=== PATIENT | female | born 1950 | race Two or more races ===

== ENCOUNTER 2021-05-02 23:26 | Emergency (ER) | payer OTHER ==
[~2021-05-02] VITALS: Ht 162.6 cm; Wt 65.9 kg
[~2021-05-02 23:26] MED LIST: ASPI-1450 PO; BP MED PO; METF500T PO; SIMV-260 PO
[2021-05-02] MEDS ORDERED: OMEP10 PO (23:58)
[2021-05-02] MEDS ORDERED: CEPH500C3 PO (23:58)
[2021-05-02] MEDS ORDERED: METF-960 PO (23:58)
[2021-05-02] MEDS ORDERED: CALC-1275 PO (23:58)
[2021-05-02] MEDS ORDERED: ACET-2163 PO (23:58)
[2021-05-02] MEDS ORDERED: CARV3 PO (23:58)
[2021-05-02] MEDS ORDERED: ATOR40TA28 PO (23:58)
[2021-05-02] MEDS ORDERED: LISI-893 PO (23:58)
[2021-05-02] MEDS ORDERED: MULT-88 PO (23:58)
[2021-05-02] MEDS ORDERED: CITA-144 PO (23:58)
[2021-05-02] MEDS ORDERED: RANO500T3 PO (23:58)
[2021-05-02] MEDS ORDERED: LORA-999 PO (23:58)
[2021-05-02] MEDS ORDERED: LEVO150 PO (23:58)
[2021-05-03 02:06] LABS: BASOPHILS % (AUTO) 0.6 % (0.0-2.0); EOSINOPHILS % (AUTO) 1.3 % (1.0-6.0); HEMATOCRIT 34.2 % (36-46); HEMOGLOBIN 11.3 g/dL (12.0-16.0); LYMPHOCYTES # (AUTO) 2.7 K/uL (1.0-4.8); LYMPHOCYTES % (AUTO) 28.2 % (22.0-44.0); MEAN CORPUSCULAR HEMOGLOBIN 28.7 pg (26.0-34.0); MEAN CORPUSCULAR HGB CONC 33.1 G/dL (31.0-37.0); MEAN CORPUSCULAR VOLUME 87 fL (80-100); MONOCYTES # (AUTO) 0.6 K/uL (0.1-1.0); MONOCYTES % (AUTO) 6.3 % (2.0-9.0); NEUTROPHILS # (AUTO) 6.2 K/uL (1.8-7.7); NEUTROPHILS % (AUTO) 63.6 % (40.0-70.0); PLATELET COUNT (AUTO) 272 K/uL (150-450); RED BLOOD CELL COUNT(AUTO) 3.94 MIL/uL (4.00-5.20); RED CELL DISTRIBUTION WIDTH 13.9 % (11.5-14.5)
[2021-05-03 03:15] LABS: ANION GAP 8 mmol/L (8-16); CALCIUM, TOTAL 9.4 mg/dL (8.8-10.5); CARBON DIOXIDE 26 mmol/L (22-29); CHLORIDE 100 mmol/L (98-107); CREATININE 1.39 mg/dL (0.60-1.30); GLOMERULAR FILTR. RATE CALC 37 mL/min (>60); GLUCOSE,RANDOM 164 mg/dL (70-110); SODIUM SERUM 134 mmol/L (136-145); UREA NITROGEN, BLOOD 28 mg/dL (7-18)
[2021-05-03 03:20] LABS: ALANINE AMINOTRANSFERASE 18 U/L (12-78); ALBUMIN 3.7 g/dL (3.4-5.0); ALKALINE PHOSPHATASE 82 U/L (46-116); ASPARTATE AMINOTRANSFERASE 16 U/L (15-37); BILIRUBIN,TOTAL 0.5 mg/dL (0.1-1.0); TOTAL PROTEIN, SERUM 7.4 g/dL (6.4-8.2)
[2021-05-03] MEDS ORDERED: LORazepam 1 MG TABLET PO ONE (03:45)
[2021-05-03 04:57] LABS: APPEARANCE,URINE CLEAR (CLEAR); GLUCOSE, URINE (UA) NEGATIVE (NEGATIVE); KETONES,URINE 15 mg/dL (NEGATIVE); LEUKOCYTE ESTERASE ,URINE SMALL (NEGATIVE); NITRATE,URINE NEGATIVE (NEGATIVE); OCCULT BLOOD,URINE NEGATIVE (NEGATIVE); PROTEIN,URINE POS 1+ (NEGATIVE); UROBILINOGEN,URINE 0.2 mg/dL (<=1.0)
[2021-05-03 05:03] LABS: AMPHET/METH SCREEN,URINE NEGATIVE (NEGATIVE); BARBITURATE SCREEN, URINE NEGATIVE (NEGATIVE); BENZODIAZEPINES SCREEN,URINE NEGATIVE (NEGATIVE); CANNABINOID SCREEN,URINE NEGATIVE (NEGATIVE); COCAINE SCREEN,URINE NEGATIVE (NEGATIVE); METHADONE SCREEN, URINE NEGATIVE (NEGATIVE); OPIATE SCREEN,URINE NEGATIVE (NEGATIVE)
[2021-05-03 05:12] LABS: BILIRUBIN,URINE PRELIM. POSITIVE (NEGATIVE); PHENCYCLIDINE SCREEN,URINE NEGATIVE (NEGATIVE)
[2021-05-03 05:30] LABS: SQUAMOUS EPITHELIAL CELL,UR Many /LPF (None Seen)
[2021-05-03 05:31] LABS: RBC,URINE None Seen /HPF (0-2)
[2021-05-03 05:33] LABS: BACTERIA,URINE Few /HPF (None Seen); YEAST,URINE Rare /HPF (None Seen)
[2021-05-03 05:46] VITALS: BP 120/59
== END 2021-05-03 08:55 | disposition home or self-care (01) ==
LOC: EMS 23:26
DX: F41.9 Anxiety disorder, unspecified (principal); R11.2 Nausea with vomiting, unspecified; F32.9 Major depressive disorder, single episode, unspecified; E11.9 Type 2 diabetes mellitus without complications; I10 Essential (primary) hypertension; F17.210 Nicotine dependence, cigarettes, uncomplicated; Z86.73 Personal history of transient ischemic attack (TIA), and cerebral infarction without residual deficits; Z79.84 Long term (current) use of oral hypoglycemic drugs; Z79.899 Other long term (current) drug therapy
CPT/HCPCS: 36415; 80053; 80307; 81001; 85025; 99283; G0480